=== PATIENT | male | born 1970 | race Caucasian/White ===

== ENCOUNTER 2018-11-15 06:55 | Day surgery (SDC) | payer OTHER ==
[~2018-11-15] VITALS: Ht 177.8 cm; Wt 127.0 kg
[~2018-11-15 06:55] MED LIST: AERONEB GO NEB1 EACH MC; DOXYCYCLINE HY100 MG PO; IPRAT-ALBUT 0.5-3 ML INH; LEVAQUIN750 MG PO; PREDNISONE20 MG PO
--- NOTE | 2018-11-15 10:14 | NUR ---
11/15/18 Jair4 Jocelyn Brambila 1009-PATIENT ARRIVED TO PACU ON RA. PATIENT REACTIVE TO VOICE DENIES PAIN MOVING ARMS. RIGHT CHEEK IS REDDENED AND OXYGEN MASK WAS REMOVED IN OR PRIOR TO PACU. RR EVEN. SR. DRESSING CDI TO RIGHT SIDE OF HEAD. PATIENT DROWSY DOZES BACK TO SLEEP.
[2018-11-15] MEDS ORDERED: IBUPROFEN600 MG PO (10:24)
[2018-11-15] MEDS ORDERED: TYLENOL325 MG PO (10:24)
[2018-11-15] MEDS ORDERED: OXYCODON-ACETA1 EAC2 PO (10:24)
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
== END 2018-11-15 10:50 | disposition home or self-care (01) ==
LOC: OPS 06:55 → DS 06:55 → OPS 08:00 → DS 10:00 → OPS 10:50
PROVIDERS: Surgery
PROC: 0HB0XZZ Excision of Scalp Skin, External Approach (ICD-10-PCS; principal; 2018-11-15 08:00)
DX: L72.8 Other follicular cysts of the skin and subcutaneous tissue (principal); G47.33 Obstructive sleep apnea (adult) (pediatric); Z91.040 Latex allergy status; Z99.89 Dependence on other enabling machines and devices
CPT/HCPCS: 00300; 36415; 85025; J0690; J2250; J2704; J3010; J7120

== ENCOUNTER 2021-02-13 11:39 | Day surgery (SDC) | payer OTHER ==
[~2021-02-13] VITALS: Ht 177.8 cm; Wt 137.3 kg
--- NOTE | ~2021-02-13 | OR ---
[facility] [address] [place], [place] [address] Draft DATE OF OPERATION: 02/13/2021 SURGEON: Sheri Garcia MD INDICATION: This 50-year-old white man is a patient Dr. Castro and is referred for colonoscopy. He has a family history of colon cancer in a grandfather who at 66 of the disease. The patient has had episodes of constipation and occasions of rectal bleeding. He has no current symptoms right now. He has never undergone colonoscopy in the past. He is now to undergo colonoscopy. He understands the risks of bleeding, infection, and perforation. FINDINGS: The prep was quite good. Complete colonoscopy was undertaken to the cecum. There were numerous diverticula of the sigmoid and left colon. There were three small polyps of the left colon, all excised completely 2 with cold snare technique and 1 with cold morcellation technique. Additionally noted were internal hemorrhoids, which may well account for his episodic rectal bleeding. PROCEDURE: The patient was brought to the endoscopy suite and placed in the lateral decubitus position, given intravenous sedation to the point of slurred speech and nystagmus. Full cardiopulmonary monitoring was maintained. A latex-free environment was maintained. After satisfactory intravenous sedation, digital rectal examination was performed, which was normal. An Olympus video colonoscope was passed in the rectum and manipulated throughout the colon noting diverticulosis of the sigmoid and left colon. The scope was passed beyond this ultimately to the cecum. The ileocecal valve and appendiceal orifice were normal. The scope was withdrawn from that point and examination throughout showed no sign of abnormality until approximately 90 cm from the anal verge. A small sessile polyp was noted, this was excised with cold snare technique. The scope was withdrawn further and about 80 cm, a similar such polyp although more prominent was also noted, too was excised similarly. Careful withdrawal at 50 cm showed a small polyp excised only with cold morcellation technique as the snare would not grasp it well. Diverticula were once again noted in the sigmoid. Retroflexed view of the rectum showed internal hemorrhoidal changes. The scope was removed and the patient was taken to the recovery room in good condition. PATIENT NAME: LELA MENON OPERATIVE REPORT DATE OF : 72 REPORT #: [id number] PHYSICIAN: SHERI GARCIA MD PCP: ECHO CASTRO MD REPORT IS CONFIDENTIAL AND NOT TO BE RELEASED WITHOUT AUTHORIZATION [facility] [address] [place], [place] [address] Draft CONCLUDING DIAGNOSES: 1. Small polyps x3. 2. Diverticulosis. 3. Hemorrhoids. PLAN: If he has recurrent hemorrhoidal bleeding, hemorrhoidal banding could be undertaken in the office setting without problem. Recommend a high-fiber diet for both hemorrhoidal problems as well as his diverticulosis. Would recommend repeat colonoscopy in 3 years based on family history and current findings of polyps. This will be reviewed with the patient. He will return to the ongoing care of Dr. Castro in the meantime. If his rectal bleeding recurs, he will let me know. MD KAMRAN Angela/KEV /[id number] cc: Dr. Echo Castro Copies: ~ PATIENT NAME: LELA MENON OPERATIVE REPORT DATE OF : 72 REPORT #: [id number] PHYSICIAN: SHERI GARCIA MD PCP: ECHO CASTRO MD REPORT IS CONFIDENTIAL AND NOT TO BE RELEASED WITHOUT AUTHORIZATION
[~2021-02-13 11:39] MED LIST changes: +IBUPROFEN600 MG PO; +LISINOPRIL20 MG PO; +OXYCODON-ACETA1 EAC2 PO; +TYLENOL325 MG PO
--- NOTE | 2021-02-13 14:19 | NUR ---
PT WAS UPDATED AT 1300 AND 1420 ON WAIT. STILL IN SURGERY.
--- NOTE | 2021-02-13 15:53 | NUR ---
02/13/21 1553 Sheets,Rebekah 1547 PT ARRIVED TO PACU ON 3L VIA NC, PT WAKES AND DENIES PAIN. ABD ROUND AND FIRM, RN ENCOURAGES PT TO PASS GAS/AIR. VSS.
--- NOTE | 2021-02-17 14:32 | PATH ---
[facility] [address] [place], [place] [address] Signed SPECIMEN(S): A COLON POLYP AT 80 CM SPECIMEN(S): B COLON POLYP AT 70 CM SPECIMEN(S): C COLON POLYP AT 50 CM SPECIMEN SOURCE: A. COLON POLYP AT 80 CM B. COLON POLYP AT 70 CM C. COLON POLYP AT 50 CM CLINICAL HISTORY: Colonoscopy. Constipation, rectal bleeding. Family history of colon CA. MICROSCOPIC DESCRIPTION: Histologic sections of all submitted blocks are examined by light microscopy. These findings, together with the gross examination, support the pathologic diagnosis. FINAL PATHOLOGIC DIAGNOSIS: A. Colon, 80 cm, polypectomy: - Tubular adenoma. B. Colon, 70 cm, polypectomy: - Tubular adenoma. C. Colon, 50 cm, polypectomy: - Colonic mucosa with no significant pathologic changes. BRP:cml:C2NR GROSS DESCRIPTION: Three specimens are received in three containers, labeled "TH." A. The specimen, labeled "TH, colon polyp at 80 cm," is received in formalin and consists of three young soft tissue fragments that measure 0.1-0.4 cm in greatest dimension. The specimen is entirely submitted in cassette (A1). B. The specimen, labeled "TH, colon polyp at 70 cm," is received in formalin and consists of two young soft tissue fragments that measure 0.1-0.2 cm in greatest dimension. The specimen is entirely submitted in cassette (B1). C. The specimen, labeled "TH, colon polyp at 50 cm," is received in formalin and consists of one young soft tissue fragment that measures 0.1 cm in greatest dimension. The specimen is entirely submitted in cassette (C1). JS (under the direct supervision of a pathologist) PATIENT NAME: LELA MENON PATHOLOGY DATE OF : 72 REPORT #: [id number] PHYSICIAN: ALAN PATHOLOGY PCP: EDISON CASTRO MD REPORT IS CONFIDENTIAL AND NOT TO BE RELEASED WITHOUT AUTHORIZATION [facility] [address] [place] [id number] Signed The Gross Description was prepared using a voice recognition system. The report was reviewed for accuracy; however, sound-alike word errors, addition and/or deletions may occur. If there is any question about this report, please contact Client Services. PERFORMING LABORATORY: The technical component was performed by [facility], [address] [place] [id number] (Equipment Specialist: Rebecca Shukla MD; CLIA# [id number]). Professional interpretation was performed by [facility], [facility], [address] [place] [id number] (CLIA# [id number]). Diagnostician: Chase Brooks MD Pathologist Electronically Signed 02/17/2021 Copies: ~ PATIENT NAME: LELA MENON PATHOLOGY DATE OF : 72 REPORT #: [id number] PHYSICIAN: ALAN PATHOLOGY PCP: EDISON CASTRO MD REPORT IS CONFIDENTIAL AND NOT TO BE RELEASED WITHOUT AUTHORIZATION
== END 2021-02-13 16:40 | disposition home or self-care (01) ==
LOC: OPS 11:39 → DS 11:41 → OPS 13:00
PROVIDERS: ATTEND Surgery
PROC: 0DBM8ZX Excision of Descending Colon, Via Natural or Artificial Opening Endoscopic, Diagnostic (ICD-10-PCS; 2021-02-13)
PROC: 0DBM8ZX Excision of Descending Colon, Via Natural or Artificial Opening Endoscopic, Diagnostic (ICD-10-PCS; principal; 2021-02-13 13:00)
DX: D12.4 Benign neoplasm of descending colon (principal); K57.30 Diverticulosis of large intestine without perforation or abscess without bleeding; K64.8 Other hemorrhoids; Z80.0 Family history of malignant neoplasm of digestive organs; I10 Essential (primary) hypertension; Z91.040 Latex allergy status
CPT/HCPCS: 99153; G0500; J2250; J3010; J7121

== ENCOUNTER 2021-07-03 23:59 | Emergency (ER) | payer OTHER ==
[~2021-07-03] VITALS: Ht 177.8 cm; Wt 136.1 kg
--- NOTE | 2021-07-04 13:33 | EKG ---
[facility] [address] [facility] [place], [place] [address] Signed Normal sinus rhythm Normal ECG No previous ECGs available Confirmed by JULIO FERRER DO ([id number]) on 07/04/2021 1:33:23 PM Electronically Signed By: JULIO FERRER DO 07/04/21 1333 PATIENT NAME: LELA MENON Electrocardiogram DATE OF : 72 PHYSICIAN: JULIO FERRER DO REPORT #: [id number] REPORT IS CONFIDENTIAL AND NOT TO BE RELEASED WITHOUT AUTHORIZATION
== END 2021-07-04 04:45 | disposition home or self-care (01) ==
LOC: ED 23:59
DX: R07.89 Other chest pain (principal); Z20.822 Contact with and (suspected) exposure to COVID-19; E66.01 Morbid (severe) obesity due to excess calories; I10 Essential (primary) hypertension; Z91.040 Latex allergy status; Z79.899 Other long term (current) drug therapy
CPT/HCPCS: 71045; 80053; 83735; 84484; 85025; 85379; 93005; 93010; 99285-25; C9803; U0003